=== PATIENT | male | born 1990 | race Two or more races ===

== ENCOUNTER 2019-10-27 13:33 | Emergency (ER) | payer OTHER ==
[~2019-10-27] VITALS: Ht 185.4 cm; Wt 90.0 kg
[2019-10-27] MEDS ORDERED: MAGNESIUM/ALUMINUM HYDROXIDE/SIMETHICONE 30ML UDC PO STA (15:16)
[2019-10-27] MEDS ORDERED: VISCOUS LIDOCAINE 2% 15 ML UDC PO STA (15:16)
[2019-10-27 15:29] VITALS: BP 151/74
[2019-10-27] MEDS ORDERED: KETOROLAC 30MG/ML VIAL IM ONE (15:30)
== END 2019-10-27 17:19 | disposition home or self-care (01) ==
LOC: ER 13:33 → EDBD 13:33 → ER 17:19
DX: R07.89 Other chest pain (principal); R00.2 Palpitations; K21.9 Gastro-esophageal reflux disease without esophagitis
CPT/HCPCS: 36415; 71045; 84443; 84484; 93005; 96372; 99285; J1885